=== PATIENT | male | born 1965 | race Caucasian/White ===

== ENCOUNTER 2021-11-11 06:56 | Day surgery (SDC) | payer OTHER ==
[~2021-11-11 06:56] MED LIST: DIPRIVAN 200 MG/20 ML IV ONE; Decadron 4 MG INJ ONE; Lactated Ringers 1,000 ML IV SCH; Marcaine Mpf 0.5% Vial 30 Ml ONE; Pepcid 20 MG VIAL IV ONE; Pre-Attached Lta Kit TP ONE; Quelicin Fliptop 200 MG/10 ML ONE; Reglan 10 MG/2 ML IV ONE; SUBLIMAZE 100 MCG/2 ML ONE; XYLOCAINE 1% HCL 20 ML MDV ONE; Xylocaine-Mpf 2% 5 Ml Vial ONE; Zofran 4 MG/2 ML VIAL ONE
[2021-11-11] MEDS ORDERED: CEFAZOLIN 2 GM-D5W BAG** 2 GM/50 ML ML IV SCH (07:00)
[2021-11-11] MEDS ORDERED: ATROPINE SULFATE 1MG ONE (07:24)
[2021-11-11] MEDS ORDERED: DEXMEDETOMIDINE 80 MCG/20ML-NS IV ONE (07:30)
[2021-11-11] MEDS ORDERED: Ephedrine Sulfate 50 MG/ML ONE (07:32)
[2021-11-11] MEDS ORDERED: PHENYLEPHRINE HCL ONE (08:02)
[2021-11-11] MEDS ORDERED: Lactated Ringers 1,000 ML IV ONE (08:14)
[2021-11-11 09:19] VITALS: PULSE 75
[2021-11-11 09:37] VITALS: BP 163/95; O2SAT 96
--- NOTE | 2021-11-11 10:02 | XRAY ---
Indication: Right 2nd toe Luis osteotomy. Intraoperative fluoroscopy provided for 23 seconds. 7 digital spot images submitted for interpretation demonstrates 2nd metatarsal head Luis osteotomy and 2nd phalanx fusion all with intact screws. Correlate with intraoperative findings/report.
--- NOTE | 2021-11-14 14:39 | XRAY ---
23 seconds fluoroscopy time in surgery for Luis osteotomy right 2nd toe.
--- NOTE | 2021-11-14 15:16 | OP ---
SURGERY DATE/TIME: 11/11/2021 0708 PREOPERATIVE DIAGNOSES: 1) Severe hammer toe second digit right foot. 2) Pain right foot. 3) History of diabetic ulceration. 4) Diabetic peripheral neuropathy. POSTOPERATIVE DIAGNOSES: 1) Severe hammer toe second digit right foot. 2) Pain right foot. 3) History of diabetic ulceration. 4) Diabetic peripheral neuropathy. PROCEDURES: 1) Hammer toe correction second digit right foot. 2) Luis osteotomy second metatarsal. SURGEON: Torres Zhou DPM. BIOMEDICAL EQUIPMENT SUPPORT SPECIALIST: None. ANESTHESIA: General plus preoperative local block. See injectables for details. HEMOSTASIS: Ankle tourniquet set to 250 mm of Mercury for 46 minutes. ESTIMATED BLOOD LOSS: Less than 4 cc. INJECTABLES: 20 cc of a 1:1 mixture of 1% lidocaine plain and 0.5% bupivacaine plain injected in metatarsal block-type fashion to the right foot. INDICATION FOR SURGERY: Alen is a very pleasant 56-year-old male who presented to my office several months ago for concerns over hammer digits to the bilateral lower extremity. The right lower extremity had been contracted so long and secondary to his peripheral neuropathy he started developing some ulcerations over the dorsal aspect of the digit. The patient was fearful that this may result in him losing a digit and was making plans to proceed with surgical intervention. However because of his work, he found some conservative modalities that worked in the meantime. However due to the patient's requirement to be up and on his feet quite significantly the ulcerations the patient wanted to proceed with surgical intervention at this time in order to eliminate the possibility of developing ulceration and the potential for amputation due to his peripheral neuropathy and his diabetes. The patient understands all risks, benefits and complications of the procedure including but not limited to delayed skin healing, nonskin healing, possibility of delayed bone healing and nonbone healing, possibility of painful irritated hardware and possibility of need for removal of hardware. No guarantees were provided as to the outcome of the surgical procedure. Plenty of time was allowed for him and his to ask questions which were answered to the patient and his 's apparent satisfaction. It is with that we decided to proceed. DESCRIPTION OF PROCEDURE AND FINDINGS: The patient was brought into the OR and placed on the OR table in the supine position. At this time, adequate general anesthesia was administered. A well-padded ankle tourniquet was applied to the patient's right ankle and the foot was prepped and draped in the typical sterile fashion. At this time an Esmarch was utilized to exsanguinate the foot. A linear incision was made over the dorsal aspect of the second metatarsophalangeal joint extending all the way to the distal interphalangeal joint. These were deepened along soft tissue planes being careful not to damage any neurovascular structures. The extensor digitorum longus tendon was identified. A V-plasty was performed on the tendons retracting out of the way and deeper dissection was carried down to the metatarsal where the capsule was incised utilizing a J-stroke type incision to both sides, mediolateral sides to medial and lateral collateral ligaments. At this time attention was directed to the dorsal aspect of the second metatarsophalangeal joint where a sagittal saw was utilized to make a cut perpendicular to the weightbearing surface this cut was made [id number] to metatarsal and the metatarsal head was pushed back in order to allow for dropping of the digit in the sagittal plane however still respecting the patient's metatarsal parabola. At this time the fixation was made utilizing 2.0 x 16 mm headed partially threaded Tyber screw this was checked under fluoroscopic guidance and deemed to be adequate and not bicortical getting good compression between the fragment and the bone. The K-wire was removed. The overhang of the metatarsal was then rongeured until there was a smooth surface contiguous with the joint. A Kelikian test was performed showing that the digit dropped significantly within the same plane as the remainder of digit. At this time attention was directed to the distal interphalangeal joint and proximal interphalangeal joint where sagittal saw was utilized to resect out the joint and angling the cuts to correct any deformity. A K-wire was retrograded from the distal tip of the distal interphalangeal joint and down the middle phalanx and the proximal phalanx which was checked under fluoroscopic guidance in AP and lateral view to insure there was good bony contact between the joint surfaces and the K-wire was indeed within proximal phalanx, the distal and middle phalanx. A 2.5 x 30 mm VPC screw was introduced from the distal tip of the second digit to the proximal phalanx this was checked under fluoroscopic guidance and deemed to be in adequate position. At this time copious amounts of sterile saline were used to flush the surgical site. The tendon was repaired utilizing 4-0 Monocryl and then the skin edges were then coapted utilizing 4-0 Monocryl in simple interrupted buried-type fashion and then 3-0 Nylon to the dorsal aspect of the skin utilizing horizontal mattress-type fashion. Tourniquet was let down. Total tourniquet time was 36 minutes. A dressing consisting of Betadine, Adaptic, 4x4, Kerlix and DAVE was applied to the patient's right foot. The patient was then reversed from anesthesia and returned to the postoperative anesthesia care unit with vital signs stable and vascular status intact. The patient handled the anesthesia as well as the procedure without significant complication. Postoperative orders as indicated in the patient's discharge chart.
== END 2021-11-11 10:20 | disposition home or self-care (01) ==
LOC: SDC 06:56
PROVIDERS: ATTEND Podiatrist Foot & Ankle Surgery
DX: M20.41 Other hammer toe(s) (acquired), right foot (principal); M79.671 Pain in right foot; Z86.31 Personal history of diabetic foot ulcer; E11.42 Type 2 diabetes mellitus with diabetic polyneuropathy
CPT/HCPCS: 73630; 76000; J0330; J0461; J0690; J1100; J2370; J2405; J2704; J3010